=== PATIENT | male | born 1960 | race Caucasian/White ===

== ENCOUNTER 2018-02-11 14:23 | Emergency (ER) | payer MEDICAID ==
[~2018-02-11] VITALS: Ht 162.6 cm; Wt 61.7 kg
[2018-02-11 14:46] VITALS: BP 131/83
--- NOTE | 2018-02-11 14:52 | NUR ---
PT AMBULATES TO BED 1, REPORT GIVEN TO KETURAH THAKKAR
--- NOTE | 2018-02-11 14:55 | NUR ---
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 ER MD MADE AWARE OF PT STATUS.
[2018-02-11] MEDS ORDERED: KETOROLAC 60 MG/2 ML VIAL IM ONE (16:45)
[2018-02-11 17:40] VITALS: BP 134/84
--- NOTE | 2018-02-11 17:40 | NUR ---
Patient discharged with v/s stable. Written and verbal after care instructions given and explained. Patient alert, oriented and verbalized understanding of instructions. Ambulatory with steady gait. All questions addressed prior to discharge. ID band removed. Patient advised to follow up with PMD. Rx of COLACE, ANUSOL, AND NORCO given. Patient educated on indication of medication including possible reaction and side effects. Opportunity to ask questions provided and answered.
== END 2018-02-11 17:40 | disposition home or self-care (01) ==
LOC: MED 14:23
DX: K64.9 Unspecified hemorrhoids (principal); K62.89 Other specified diseases of anus and rectum; E11.9 Type 2 diabetes mellitus without complications; Z90.89 Acquired absence of other organs
CPT/HCPCS: 96372; 99283; J1885